=== PATIENT | female | born 1985 | race African-American/Black ===

== ENCOUNTER 2018-07-14 02:36 | Emergency (ER) | payer OTHER ==
[2018-07-14 02:44] VITALS: RESP 20
[2018-07-14] MEDS ORDERED: DIPH,PERTUS(ACELL)TETVAC-LF 0.5 ML VIAL IM ONE (02:59)
[2018-07-14] MEDS ORDERED: HYDROcodone/APAP 5-325MG 1 EACH TAB PO STA (02:59)
--- NOTE | 2018-07-14 03:38 | XR ---
EXAMINATION TYPE: XR hand complete RT DATE OF EXAM: 07/14/2018 COMPARISON: NONE HISTORY: Pain TECHNIQUE: 3 views FINDINGS: There is nondisplaced oblique fracture through the head of the middle phalanx of the middle finger right hand. There is no dislocation. The joint spaces are fairly normal. IMPRESSION: Acute nondisplaced fracture of the middle finger as above. No dislocation.
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
[2018-07-14] MEDS ORDERED: MORPHINE SULFATE 4 MG/ML SYRINGE IM STA (03:57)
[2018-07-14] MEDS ORDERED: ACET/COD 300 MG/30 MG STARTER PACK 6 TAB BTL PO STA (04:01)
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
[2018-07-14 04:42] VITALS: BP 129/85; PULSE 103; TEMP 97.8
== END 2018-07-14 04:42 | disposition home or self-care (01) ==
LOC: EC 02:36 → SUPCPDRO 02:36 → EC 04:42
DX: S62.652A Nondisplaced fracture of middle phalanx of right middle finger, initial encounter for closed fracture (principal); S02.2XXA Fracture of nasal bones, initial encounter for closed fracture; S01.01XA Laceration without foreign body of scalp, initial encounter; Z91.013 Allergy to seafood; Z23 Encounter for immunization; Y09 Assault by unspecified means; Y92.89 Other specified places as the place of occurrence of the external cause
CPT/HCPCS: 73130; 70486; 70450; 90715; 99284; 12004; 96372; 90471; J2270

== ENCOUNTER 2021-07-28 10:37 | Emergency (ER) | payer BC ==
[2021-07-28 10:43] VITALS: RESP 18
[2021-07-28] MEDS ORDERED: ACETAMINOPHEN TAB 500 MG TAB PO STA (11:09)
[2021-07-28] MEDS ORDERED: SODIUM CHLORIDE 0.9% 1,000 ML IV ONE (11:09)
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
[2021-07-28 11:56] LABS: Basophils % (A) 0 %; Eosinophils # (A) 0.2 k/uL (0-0.7); Eosinophils % (A) 2 %; HCT 34.1 % (34.0-46.0); HGB 10.7 gm/dL (11.4-16.0); Hypochromasia Marked; Lymphocytes # (A) 2.3 k/uL (1.0-4.8); Lymphocytes % (A) 22 %; MCHC 31.2 g/dL (31.0-37.0); MCV 83.2 fL (80.0-100.0); Mean Platelet Volume 8.4; Monocytes # (A) 0.8 k/uL (0-1.0); Monocytes % (A) 8 %; Neutrophils # (A) 6.9 k/uL (1.3-7.7); Neutrophils % (A) 66 %; Platelet Count 410 k/uL (150-450); RDW 15.3 % (11.5-15.5); WBC 10.4 k/uL (3.8-10.6)
[2021-07-28 12:03] LABS: Amorphous Sediment,Urine Rare /hpf; Appearance,Urine Cloudy (Clear); Bacteria,Urine Rare /hpf; Bilirubin,Urine Negative (Negative); Blood,Urine Large (Negative); Color,Urine Yellow; Glucose,Urine (UA) Negative (Negative); Ketones,Urine Negative (Negative); Leukocyte Esterase,Urine Small (Negative); Mucus,Urine Many /hpf; Nitrite,Urine Negative (Negative); Protein,Urine Trace (Negative); RBC,Urine 5 /hpf (0-5); Specific Gravity,Urine 1.024 (1.001-1.035); Squamous Epithelial Cell,Urine 18 /hpf (0-4); Urobilinogen,Urine <2.0 mg/dL (<2.0); WBC,Urine 7 /hpf (0-5)
[2021-07-28 12:06] LABS: ALT 13 U/L (4-34); AST 25 U/L (14-36); African American GFR (CKD) >90 (>60 ml/min/1.73 sqM); Albumin 4.2 g/dL (3.5-5.0); Alkaline Phosphatase 65 U/L (38-126); Anion Gap 9 mmol/L; Blood Urea Nitrogen 7 mg/dL (7-17); Calcium 9.7 mg/dL (8.4-10.2); Carbon Dioxide 20 mmol/L (22-30); Chloride 107 mmol/L (98-107); Glucose 89 mg/dL (74-99); Non-African American GFR(CKD) >90 (>60 ml/min/1.73 sqM); Potassium 4.1 mmol/L (3.5-5.1); Sodium 136 mmol/L (137-145); Total Bilirubin 0.5 mg/dL (0.2-1.3); Total Protein 7.8 g/dL (6.3-8.2)
[2021-07-28 12:48] LABS: HCG,Quantitative Serum 61367.5 mIU/mL
--- NOTE | 2021-07-28 12:57 | US ---
EXAMINATION TYPE: Transabdominal DATE OF EXAM: 07/28/2021 12:25 PM COMPARISON: NONE CLINICAL HISTORY: pain. Positive beta hCG test. EXAM PERFORMED: Transvaginal (TV) and Transabdominal (TA) EXAM MEASUREMENTS: GESTATIONAL AGE / DATING Physician Established: Not yet established Dates by LMP: (7 weeks/1 days) EDC: 03-15-22 Dates by First Scan: No previous this is first scan Dates by Current Scan for: Unable to date by today's study MATERNAL ANATOMY Uterus: 11.9 x 5.3 x 4.2cm Right Ovary: 4.2 x 2.4 x 2.7cm Left Ovary: 2.8 x 1.7 x 1.9cm Post CDS / Adnexa: wnl Subchorionic bleed measuring 6.6 x 1.5 x 1.9cm GESTATION / SURVEY No pole seen on today's study. MSD: 2.3 (6 weeks/6 days) Yolk Sac (normal less than 6mm): 2mm Date of LMP: 06-08-21 Beta HcG (if available): Not available at this time Heterogeneous uterus. Central endometrium is difficult to measure as there is oval 3.2 x 1.6 x 2.0 cm structure with internal 2 mm rim hyperechoic structure. Findings could reflect gestational sac and y olk sac. Distinct pole not seen. Curvilinear hypoechoic fluid favors small to moderate-sized camp bchorionic hemorrhage or implantation bleed measuring up to 1.5 cm in thickness. No free fluid. Both ovaries seen. No suspicious extra ovarian adnexal masses. IMPRESSION: Findings favored too early to visualize intrauterine but spontaneous i s in differential and ectopic is not excluded. Serial beta hCG and ultrasound follow-up adv ised.
[2021-07-28 14:44] VITALS: BP 114/66; PULSE 82; TEMP 98.8
== END 2021-07-28 14:48 | disposition home or self-care (01) ==
LOC: EC 10:37
DX: O09.91 Supervision of high risk pregnancy, unspecified, first trimester (principal); O20.0 Threatened abortion; Z3A.01 Less than 8 weeks gestation of pregnancy
CPT/HCPCS: 36415; 76801; 80053; 81001; 81025; 84702; 85025; 86900; 86901; 96360; 99284

== ENCOUNTER 2021-11-19 05:01 | Emergency (ER) | payer OTHER, BC ==
[2021-11-19] MEDS ORDERED: methylPREDNISolone SOD SUCCI 125 MG/2 ML VIAL IV STA (05:07)
[2021-11-19] MEDS ORDERED: diphenhydrAMINE 50 MG/ML 1 ML VIAL IVP STA (05:07)
[2021-11-19] MEDS ORDERED: FAMOTIDINE 20 MG/2 ML VIAL IV STA (05:07)
[2021-11-19] MEDS ORDERED: SODIUM CHLORIDE 0.9% 1,000 ML IV STA (05:07)
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
[2021-11-19] MEDS ORDERED: ACETAMINOPHEN IV (For NPO) 1,000 MG in EMPTY BAG 1 BAG IVPB ONE (06:00)
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
[2021-11-19 06:06] LABS: Anisocytosis Slight; Basophils % (A) 0 %; Eosinophils # (A) 0.1 k/uL (0-0.7); Eosinophils % (A) 1 %; HCT 38.3 % (34.0-46.0); HGB 12.8 gm/dL (11.4-16.0); Lymphocytes # (A) 1.2 k/uL (1.0-4.8); Lymphocytes % (A) 13 %; MCH 29.5 pg (25.0-35.0); MCHC 33.4 g/dL (31.0-37.0); MCV 88.3 fL (80.0-100.0); Mean Platelet Volume 7.8; Monocytes # (A) 0.5 k/uL (0-1.0); Monocytes % (A) 5 %; Neutrophils # (A) 7.1 k/uL (1.3-7.7); Neutrophils % (A) 79 %; Platelet Count 297 k/uL (150-450); RBC 4.34 m/uL (3.80-5.40)
[2021-11-19] MEDS ORDERED: HYDROmorphone 1 MG/ML 1 ML SYRINGE IVP STA ×2 (06:11→08:24)
[2021-11-19 06:15] VITALS: PULSE 112; TEMP 98.8
[2021-11-19 06:16] LABS: ALT 17 U/L (4-34); AST 29 U/L (14-36); African American GFR (CKD) >90 (>60 ml/min/1.73 sqM); Albumin 3.7 g/dL (3.5-5.0); Alkaline Phosphatase 74 U/L (38-126); Anion Gap 8 mmol/L; Blood Urea Nitrogen 6 mg/dL (7-17); Calcium 9.3 mg/dL (8.4-10.2); Carbon Dioxide 20 mmol/L (22-30); Chloride 105 mmol/L (98-107); Glucose 140 mg/dL (74-99); INR 0.8 (<1.2); Non-African American GFR(CKD) >90 (>60 ml/min/1.73 sqM); Partial Thromboplastin Time 23.8 sec (22.0-30.0); Potassium 3.8 mmol/L (3.5-5.1); Prothrombin Time 9.5 sec (9.0-12.0); Sodium 133 mmol/L (137-145); Total Bilirubin 0.2 mg/dL (0.2-1.3); Total Protein 6.7 g/dL (6.3-8.2)
[2021-11-19 06:26] LABS: Alcohol 126 mg/dL
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
[2021-11-19 08:35] LABS: Appearance,Urine Clear (Clear); Bilirubin,Urine Negative (Negative); Blood,Urine Trace (Negative); Color,Urine Light Yellow; Glucose,Urine (UA) Negative (Negative); Ketones,Urine Negative (Negative); Leukocyte Esterase,Urine Negative (Negative); Nitrite,Urine Negative (Negative); Protein,Urine Negative (Negative); RBC,Urine 2 /hpf (0-5); Squamous Epithelial Cell,Urine 2 /hpf (0-4); Urobilinogen,Urine <2.0 mg/dL (<2.0); WBC,Urine 2 /hpf (0-5)
[2021-11-19 08:51] LABS: Amphetamine Screen,Urine Not Detected (NotDetected); Barbiturate Screen,Urine Not Detected (NotDetected); Benzodiazepines Screen,Urine Not Detected (NotDetected); Cocaine Screen,Urine Not Detected (NotDetected); Methadone Screen, Urine Not Detected (NotDetected); Opiate Screen,Urine Detected (NotDetected); Oxycodone Screen, Urine Not Detected (NotDetected); Phencyclidine Screen,Urine Not Detected (NotDetected); Tricyclic Antidepressant,Urine Not Detected (NotDetected); Urn Cannabinoid Scrn Not Detected (NotDetected)
[2021-11-19 09:00] VITALS: BP 119/64; RESP 16
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
== END 2021-11-19 10:20 | disposition home or self-care (01) ==
LOC: EC 05:01
DX: O99.312 Alcohol use complicating pregnancy, second trimester (principal); F10.129 Alcohol abuse with intoxication, unspecified; O9A.212 Injury, poisoning and certain other consequences of external causes complicating pregnancy, second trimester; M25.512 Pain in left shoulder; M25.552 Pain in left hip; V43.92XA Unspecified car occupant injured in collision with other type car in traffic accident, initial encounter; Y92.410 Unspecified street and highway as the place of occurrence of the external cause; Y90.6 Blood alcohol level of 120-199 mg/100 ml; Z3A.22 22 weeks gestation of pregnancy
CPT/HCPCS: 36415; 86900; 86901; 80053; 84484; 85025; 85610; 85730; 86850; 81001; 81025; 80306; 80320; 73030; 73552; 76805; 72125; 70450; 71260; 74177; 99285; 96374; 96375 ×4; 96376; 96361; J1200; J2930; J1170; J0131; Q9967

== ENCOUNTER 2021-11-19 10:24 | Outpatient (CLI) | payer BC ==
[2021-11-19 11:11] VITALS: RESP 18
[2021-11-19 13:58] VITALS: BP 125/57; PULSE 117; TEMP 97.5
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
== END 2021-11-19 13:36 | disposition home or self-care (01) ==
LOC: FBPOP 10:24
PROVIDERS: ATTEND Obstetrics & Gynecology
DX: O9A.212 Injury, poisoning and certain other consequences of external causes complicating pregnancy, second trimester (principal); Z3A.22 22 weeks gestation of pregnancy; Z91.041 Radiographic dye allergy status; Z91.013 Allergy to seafood
CPT/HCPCS: 99213